=== PATIENT | female | born 1975 | race Caucasian/White ===

== ENCOUNTER 2016-07-15 14:18 | Emergency (ER) | payer BC ==
[~2016-07-15] VITALS: Ht 177.8 cm; Wt 145.1 kg
[~2016-07-15 14:18] MED LIST: BENADRYL25 M1 PO; HALFPRIN81 MG PO; PRINIVIL20 MG PO; PROZAC20 MG PO; TOPROL XL25 MG PO; ULTRAM50 MG PO
[2016-07-15] MEDS ORDERED: WELLBUTRIN SR150 MG PO (14:36)
[2016-07-15] MEDS ORDERED: AUGMENTIN 500 M1 TAB PO (14:38)
[2016-07-15] MEDS ORDERED: MEDROL DOSEPAK4 MG PO (14:40)
[2016-07-15] MEDS ORDERED: XANAX0.25 MG PO (14:42)
[2016-07-15] MEDS ORDERED: AUGMENTIN 875-1 EACH PO (14:47)
== END 2016-07-15 15:40 | disposition short-term general hospital (02) ==
LOC: ER 14:18
DX: J06.9 Acute upper respiratory infection, unspecified (principal); M54.6 Pain in thoracic spine; J43.9 Emphysema, unspecified; I10 Essential (primary) hypertension